=== PATIENT | male | born 1990 | race Caucasian/White ===

== ENCOUNTER 2022-05-22 08:28 | Emergency (ER) | payer SELFPAY ==
[2022-05-22 08:46] VITALS: BP 125/59; PULSE 67; RESP 16; TEMP 98.2; BMI 33.3
[2022-05-22] MEDS ORDERED: KETOROLAC TROMETHAMINE 30 MG/1 ML VIAL IM ONE (09:39)
[2022-05-22] MEDS ORDERED: LIDOCAINE 5% TOPICAL PATCH TP ONE (09:39)
[2022-05-22] MEDS ORDERED: KETOROLAC TROMETHAMINE 30 MG/1 ML VIAL ONE (09:42)
[2022-05-22] MEDS ORDERED: LIDOCAINE 5% TOPICAL PATCH ONE (09:42)
[2022-05-22 09:54] LABS: PH,URINE 5.5 (5.0-8.0); URINE APPEARANCE CLEAR; URINE BILIRUBIN NEGATIVE (NEGATIVE); URINE COLOR YELLOW; URINE GLUCOSE (UA) NEGATIVE (NEGATIVE); URINE KETONE NEGATIVE (NEGATIVE); URINE LEUK ESTERASE NEGATIVE (NEGATIVE); URINE NITRITE NEGATIVE (NEGATIVE); URINE PROTEIN NEGATIVE (NEGATIVE); URINE UROBILINOGEN 0.2 mg/dL (0.2-1.0)
[2022-05-22] MEDS ORDERED: LIDOCAINE PATCH REMOVAL MC SCH (22:00)
== END 2022-05-22 10:56 | disposition home or self-care (01) ==
LOC: JER 08:28
PROC: 3E023GC Introduction of Other Therapeutic Substance into Muscle, Percutaneous Approach (ICD-10-PCS; principal; 2022-05-22)
DX: M54.50 Low back pain, unspecified (principal)
CPT/HCPCS: 81003; 87086; 99284-25